=== PATIENT | male | born 1960 | race Caucasian/White ===

== ENCOUNTER 2018-08-21 07:11 | Day surgery (SDC) | payer OTHER ==
[~2018-08-21 07:11] MED LIST: CEFAZOLIN 2 GM/D5W RTU 2 GM/50 ML RTUPB IV PRN
[2018-08-21] MEDS ORDERED: MIDAZOLAM 2 MG/2 ML INJ ONE (07:33)
[2018-08-21] MEDS ORDERED: ONDANSETRON HCL INJ/PF 4 MG/2 ML SDV ONE (07:33)
[2018-08-21] MEDS ORDERED: FENTANYL CITRATE INJ/PF 100 MCG/2 ML AMPUL ONE (07:33)
[2018-08-21] MEDS ORDERED: LIDOCAINE 2% INJ-PF (20 MG/ML) 10 ML AMPUL ONE (07:33)
[2018-08-21] MEDS ORDERED: DEXAMETHASONE SOD PHOSPHATE INJ 4 MG/1 ML VIAL ONE (07:33)
[2018-08-21] MEDS ORDERED: ACETAMINOPHEN 1,000 MG/100 ML RTUPB IV ONE (07:34)
[2018-08-21] MEDS ORDERED: PROPOFOL INJ 200 MG/20 ML VIAL IV ONE (07:34)
[2018-08-21] MEDS ORDERED: CEFAZOLIN 2 GM/D5W RTU 2 GM/50 ML RTUPB IV ONE (07:35)
[2018-08-21] MEDS ORDERED: BUPIVACAINE HCL 0.5 % INJ/PF 30 ML SDV ONE (08:01)
[2018-08-21 08:27] LABS: ANION GAP 9 (5-19); BLOOD UREA NITROGEN 18 mg/dL (7-20); CALCIUM 9.1 mg/dL (8.4-10.2); CARBON DIOXIDE 24 mmol/L (22-30); CHLORIDE 109 mmol/L (98-107); GLUCOSE 103 mg/dL (75-110); POTASSIUM 4.5 mmol/L (3.6-5.0); SODIUM 141.8 mmol/L (137-145)
[2018-08-21] MEDS ORDERED: ONDANSETRON HCL INJ/PF 4 MG/2 ML SDV IV PRN ×2 (11:04→13:11)
[2018-08-21] MEDS ORDERED: MORPHINE SULFATE 10 MG/ML INJ IV PRN (11:04)
[2018-08-21] MEDS ORDERED: FENTANYL CITRATE INJ/PF 100 MCG/2 ML AMPUL IV PRN ×3 (11:04)
[2018-08-21] MEDS ORDERED: PROMETHAZINE HCL INJ 25 MG/1 ML VIAL IV PRN ×2 (11:04)
[2018-08-21] MEDS ORDERED: MEPERIDINE HCL/PF INJ 25 MG/1 ML DISP.SYRIN IV PRN (11:04)
[2018-08-21] MEDS ORDERED: DIPHENHYDRAMINE HCL 50 MG/ML VIAL IV PRN (11:04)
--- NOTE | 2018-08-21 12:26 | RADIOLOGY REPORT (SQ) ---
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 FLUOROSCOPY TIME: 52 seconds 3 images saved to PACS. TECHNIQUE: Intra-operative images acquired during surgical procedure to evaluate progress. NUMBER OF IMAGES: 3 LIMITATIONS: None. FINDINGS: 3 images of the wrist and hand. Patient undergoing carpal resection along the radial aspe ct of the wrist. Resected trapezium. Partially resected trapezoid. Please correlate with operative note. IMPRESSION: IMAGE(S) OBTAINED DURING PROCEDURE. COMMENT: Quality ID [id number]: Final reports for procedures using fluoroscopy that document radiation exp osure indices, or exposure time and number of fluorographic images (if radiation exposure indices are not available) Please consult full operative report of the attending physician for description of the procedure. TECHNICAL DOCUMENTATION: JOB ID: [id number] [employer]- All Rights Reserved Reading location - IP/workstation name: [email or web address]
--- NOTE | 2018-08-21 12:26 | RADIOLOGY REPORT (SQ) ---
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 FLUOROSCOPY TIME: 52 seconds 3 images saved to PACS. TECHNIQUE: Intra-operative images acquired during surgical procedure to evaluate progress. NUMBER OF IMAGES: 3 LIMITATIONS: None. FINDINGS: 3 images of the wrist and hand. Patient undergoing carpal resection along the radial aspe ct of the wrist. Resected trapezium. Partially resected trapezoid. Please correlate with operative note. IMPRESSION: IMAGE(S) OBTAINED DURING PROCEDURE. COMMENT: Quality ID [id number]: Final reports for procedures using fluoroscopy that document radiation exp osure indices, or exposure time and number of fluorographic images (if radiation exposure indices are not available) Please consult full operative report of the attending physician for description of the procedure. TECHNICAL DOCUMENTATION: JOB ID: [id number] [employer]- All Rights Reserved Reading location - IP/workstation name: [email or web address]
[2018-08-21] MEDS ORDERED: OXYCODONE-ACETAMINOPHEN 5-325 MG TABLET PO PRN ×2 (12:36→13:11)
--- NOTE | 2018-08-21 12:37 | Discharge Summary ---
Discharge Summary (SDC) - Discharge Final Diagnosis: Right thumb STT/CMC arthritis Date of Surgery: 08/21/18 Discharge Date: 08/21/18 Condition: Good Treatment or Instructions: Schedule Follow Up w/ Dr. Erwin Cantu @ [facility] for Surgery to be seen in 10-14 days or as scheduled [place]: [place]: [place]: Ice and elevate Keep splint clean/dry/intact. If your fingers become numb please unwrap the [place] wrap but leave the splint in place, if the sensation does not return within 30 minutes please return to the emergency department. May begin finger range of motion attempting to make full fist. Please use ibuprofen (Motrin or Advil) 600-800 mg every 8 hours as needed for pain or fever DO NOT TAKE w/ TORADOL may use once TORADOL complete. You may also use acetaminophen (Tylenol) 1000 mg every 4-6 hours as needed for pain or fever. Please be aware that many medications contain acetaminophen, do not exceed a total of 1000 mg of acetaminophen every 6 hours. If ibuprofen and acetaminophen are not sufficient for your pain you may take the Percocet/[place]. Please be aware that the Percocet/[place]low does contain Tylenol. Stool softener of choice when on pain medication. Prescriptions: Ketorolac Tromethamine [Toradol 10 mg Tablet] 10 mg PO Q8HP PRN #12 tablet PRN Reason: Oxycodone HCl/Acetaminophen [Percocet 5-325 mg Tablet] 1 tab PO Q6 PRN #25 tab PRN Reason: Referrals: ANITRA RODRIGUEZ PA [Primary Care Provider] - Discharge Diet: As Tolerated Respiratory Treatments at Home: Deep Breathing/Coughing Discharge Activity: No Lifting Over 10 Pounds, No Lifting/Push/Pulling Report the Following to Your Physician Immediately: Fever over 101 Degrees, Unusual Bleeding, Redness, Swelling, Warmth, Increased Soreness
[2018-08-21] MEDS: FENTANYL CITRATE INJ/PF 100 MCG/2 ML AMPUL ONE ×2 (12:40→12:45)
[2018-08-21] MEDS ORDERED: KETOROLAC TROMETHAMINE INJ/PF 30 MG/1 ML SDV ONE (12:40)
--- NOTE | 2018-08-21 12:41 | Operative Report ---
Operative Report DATE OF SURGERY: 08/21/18 PREOPERATIVE DIAGNOSIS: Right Thumb CMC/STT Arthritis POSTOPERATIVE DIAGNOSIS: Same OPERATION: Right Thumb CMC Arthroplasty w/ Trapezial Excision, Ligament Reconstruction Utilizing APL, Tendon Interposition SURGEON: QUINCY BOYKIN ANESTHESIA: GA COMPLICATIONS: None ESTIMATED BLOOD LOSS: Minimal PROCEDURE: Indication for above procedure: 58-year-old male with history of right thumb pain. Patient was diagnosed with CMC/STT arthritis. Attempted conservative measures including anti- inflammatories, bracing and injections without resolution of the symptom. After discussing risks and benefits and given the fact patient failed conservative management joint decision was made to proceed with operative treatment. Procedure In Detail: Patient was seen and evaluated in the preoperative holding area. The RIGHT upper extremity was initialized and marked. Patient received 2g of Ancef IV for bacterial prophylaxis. Patient was taken back to the operative room where transferred to the operative table and placed under general anesthesia. Once they were adequately anesthetized and a nonsterile tourniquet was placed on the upper extremity. A surgical team debriefing was performed ensuring all instrumentation was available, the surgical procedure was discussed with possible concerns reviewed. The upper extremity was prepped with chlorhexidine and alcohol and draped in a sterile fashion. A timeout was done identifying correct patient, procedure and extremity everyone in attendance agree with this and verbalized no concerns. The extremity was exsanguinated the tourniquet was inflated to 200 mmHg. A longitudinal skin incision was made in line with the first dorsal compartment. I then meticulously dissected down to the interval of the APL and EPB identifying the superficial radial nerve branches which were retracted. I then identified the radial artery which was protected throughout the entirety of the case with a [place] elevator. A T-shaped capsulotomy was made at the CMC joint of the thumb. A freer elevator was used to josie out the CMC joint, fluoroscopy confirmed the thumb cmc joint placement. The capsule was released off of the trapezium circumferentially. The FCR insertion volarly was protected. Using a rongeur the trapezium was excised as one unit. I then removed any residual loose bodies and bone fragments. I then inspected the STT joint. There was advanced degenerative changes of the STT joint thus the proximal half of the trapezoid was excised. 3 slips of the APL were identified and tracked proximally. A second longitudinal skin incision was made over the first dorsal compartment. Branch of the superficial radial nerve were identified and retracted in the middle slip of the APL was excised at the musculotendinous junction and tunneled through the incision at the CMC joint. The APL was then brought around the FCR tendon and secured to itself while my podiatrist assistant held traction of the CMC joint. This was secured with a 3-0 Ethibond suture. Additional 3-0 Ethibond suture was then placed and the remaining APL was interposed between the trapezoid and scaphoid. Given patient's history of heavy labor decision was made to proceed with placement of a CMC tight rope. The guidepin for the CMC tight rope was placed from the base of the thumb metacarpal into the second metacarpal just proximal to the metaphyseal flare. Bicortical fixation was obtained in both the thumb metacarpal and index metacarpal. A skin incision was made overlying the guidepin blunt dissection performed to the dorsal interossei preserving the fascial for later closure. The suture was then shuttled through the thumb and index metacarpal and a button placed at the thumb metacarpal and index metacarpal. With a bump between the index and middle finger maintaining palmar abduction mild radial abduction and extension of the CMC joint 2 suture knots were placed over the button. C-arm fluoroscopy was obtained confirming adequate traction there is no evidence of subsidence with stress. Thus I completed fixation with 4 additional knots. The wound was then irrigated with normal saline. The FiberWire was buried below the fascia of the dorsal fascia which was secured with interrupted 3-0 Vicryl suture. Skin was closed with running 3-0 nylon suture. Tourniquet was then deflated. A peripheral bleeding was controlled with bipolar cautery until the wound was dry. Capsule of the CMC joint was closed with interrupted 3-0 Ethibond suture. Subcutaneous tissues closed with interrupted 4-0 Monocryl suture. Skin was closed with horizontal mattress 4-0 nylon. 30 cc of 0.5% Marcaine without epinephrine was injected for postoperative pain control. Patient was placed in a thumb spica splint. Sponge counts, instrument counts, needle counts counts were correct. Patient was then awoken from anesthesia. Transferred from the operating room table to the operating room stretcher. There was no intraoperative complications patient tolerated procedure well stable to PACU. Patient was extubated and transferred to the operative stretcher. There was no intraoperative complications patient tolerated procedure well with stable to PACU. Postoperative plan: Patient will continue the splint for 2 weeks. Patient will then be transitioned to a cast for an additional 2 weeks. They will then begin occupational therapy at 4 weeks and will be fitted for a thermoplastic splint at that time.
[2018-08-21] MEDS: HYDROMORPHONE HCL INJ/PF 2 MG/ML AMPULE ONE ×2 (13:00→13:10)
[2018-08-21] MEDS ORDERED: HYDROMORPHONE HCL INJ/PF 2 MG/ML AMPULE IV PRN (13:11)
[2018-08-21] MEDS ORDERED: PHENYLEPHRINE HCL INJ/PF 10 MG/1 ML SDV ONE (13:30)
[2018-08-21] MEDS ORDERED: OXYCODONE-ACETAMINOPHEN 5-325 MG TABLET ONE (13:50)
--- NOTE | 2018-08-21 15:46 | EKG REPORT ---
SEVERITY:- NORMAL ECG - SINUS RHYTHM : Confirmed by: Sienna Joseph MD 21-Aug-2018 15:45:53
[2018-08-21 18:39] VITALS: BP 123/72
== END 2018-08-21 14:45 | disposition home or self-care (01) ==
LOC: OROUT 07:11
PROVIDERS: ATTEND Orthopaedic Surgery
DX: M18.11 Unilateral primary osteoarthritis of first carpometacarpal joint, right hand (principal); M25.531 Pain in right wrist; Z79.899 Other long term (current) drug therapy
CPT/HCPCS: 36415; 80048; 73140; 93005; 93010; 25447; 29848; 26480; J2250; J3490 ×2; J1100; J3010; J1885; J1170; J2370; J2405; J2704; J0690; J0131; 01830

== ENCOUNTER 2019-04-29 07:30 | Day surgery (SDC) | payer OTHER ==
[~2019-04-29 07:30] MED LIST changes: -CEFAZOLIN 2 GM/D5W RTU 2 GM/50 ML RTUPB IV PRN; +CEFAZOLIN SODIUM 2 GM in DEXTROSE 5%-WATER 100 ML IV PRN; +DEXAMETHASONE SOD PHOSPHATE INJ 4 MG/1 ML VIAL ONE; +FENTANYL CITRATE INJ/PF 100 MCG/2 ML AMPUL ONE; +MIDAZOLAM 2 MG/2 ML INJ ONE; +ONDANSETRON HCL INJ/PF 4 MG/2 ML SDV ONE; +PROPOFOL INJ 200 MG/20 ML VIAL IV ONE
[2019-04-29] MEDS ORDERED: BUPIVACAINE HCL 0.5 % INJ/PF 30 ML SDV ONE (07:37)
[2019-04-29] MEDS ORDERED: LIDOCAINE 1%/EPINEPHRINE INJ 20 ML VIAL ONE (07:37)
[2019-04-29 08:16] LABS: APPEARANCE,URINE CLEAR; BILIRUBIN,URINE NEGATIVE (NEGATIVE); COLOR,URINE YELLOW; GLUCOSE, URINE NEGATIVE (NEGATIVE); KETONES,URINE NEGATIVE (NEGATIVE); LEUKOCYTE ESTERASE,URINE NEGATIVE (NEGATIVE); NITRITE,URINE NEGATIVE (NEGATIVE); PROTEIN,URINE NEGATIVE (NEGATIVE); URINE SPECIFIC GRAVITY 1.018; UROBILINOGEN,URINE NEGATIVE mg/dL (<2.0)
[2019-04-29 08:22] LABS: MEAN CORPUSCULAR VOLUME 94 fl (80-97)
[2019-04-29 08:42] LABS: ABSOLUTE EOSINOPHILS # (AUTO) 0.1 10^3/uL (0.0-0.6); ABSOLUTE LYMPHOCYTES (AUTO) 1.9 10^3/uL (0.5-4.7); ABSOLUTE MONOCYTES (AUTO) 0.7 10^3/uL (0.1-1.4); ABSOLUTE NEUT (AUTO) 3.6 10^3/uL (1.7-8.2); BASOPHILS % (AUTO) 0.6 % (0-2); EOSINOPHILS % (AUTO) 1.7 % (0-6); HEMATOCRIT 41.2 % (37.9-51.0); HEMOGLOBIN 14.2 g/dL (13.5-17.0); LYMPHOCYTES % (AUTO) 30.1 % (13-45); MEAN CORPUSCULAR HEMOGLOBIN 32.4 pg (27.0-33.4); MEAN CORPUSCULAR HGB CONC 34.5 g/dL (32.0-36.0); MONOCYTES % (AUTO) 10.6 % (3-13); PLATELET COUNT 236 10^3/uL (150-450); RED BLOOD COUNT 4.38 10^6/uL (4.35-5.55); TOTAL CELLS COUNTED % (AUTO) 100 %; WHITE BLOOD COUNT 6.3 10^3/uL (4.0-10.5)
[2019-04-29 08:49] LABS: ANION GAP 6 (5-19); BLOOD UREA NITROGEN 17 mg/dL (7-20); CALCIUM 9.1 mg/dL (8.4-10.2); CARBON DIOXIDE 28 mmol/L (22-30); CHLORIDE 106 mmol/L (98-107); GLUCOSE 100 mg/dL (75-110); POTASSIUM 4.2 mmol/L (3.6-5.0)
--- NOTE | 2019-04-29 09:43 | RADIOLOGY REPORT (SQ) ---
EXAM DESCRIPTION: CHEST SINGLE VIEW COMPLETED DATE/TIME: 04/29/2019 8:20 am REASON FOR STUDY: preop COMPARISON: 08/13/2015 EXAM PARAMETERS: NUMBER OF VIEWS: One view. TECHNIQUE: Single frontal radiographic view of the chest acquired. RADIATION DOSE: NA LIMITATIONS: None. FINDINGS: LUNGS AND PLEURA: Linear marking left lower lung zone. Subsegmental atelectasis versus sc arring. Few small scattered granulomata. MEDIASTINUM AND HILAR STRUCTURES: No masses. Contour normal. HEART AND VASCULAR STRUCTURES: Heart normal in size. Normal vasculature. BONES: No acute findings. HARDWARE: None in the chest. OTHER: No other significant finding. IMPRESSION: Minimal subsegmental atelectasis versus scarring left lower lung zone. TECHNICAL DOCUMENTATION: JOB ID: [id number] [employer]- All Rights Reserved Reading location - IP/workstation name: [email or web address]
[2019-04-29] MEDS ORDERED: DIPHENHYDRAMINE HCL 50 MG/ML VIAL IV PRN (10:54)
[2019-04-29] MEDS ORDERED: MORPHINE SULFATE 10 MG/ML INJ IV PRN (10:54)
[2019-04-29] MEDS ORDERED: FENTANYL CITRATE INJ/PF 100 MCG/2 ML AMPUL IV PRN ×3 (10:54)
[2019-04-29] MEDS ORDERED: PROMETHAZINE HCL INJ 25 MG/1 ML VIAL IV PRN ×2 (10:54)
[2019-04-29] MEDS ORDERED: MEPERIDINE HCL/PF INJ 25 MG/1 ML DISP.SYRIN IV PRN (10:54)
[2019-04-29] MEDS ORDERED: ONDANSETRON HCL INJ/PF 4 MG/2 ML SDV IV PRN (10:54)
--- NOTE | 2019-04-29 11:14 | Operative Report ---
Operative Report DATE OF SURGERY: 04/29/19 PREOPERATIVE DIAGNOSIS: Loose body left knee POSTOPERATIVE DIAGNOSIS: Loose body left knee. Grade 3 chondral lesion medial femoral condyle. Medial meniscal tear. Intact ACL. Lateral meniscal tear. Grade 2 chondral malacia lateral compartment. Grade 2 chondral malacia the patellofemoral compartment OPERATION: Left arthroscopic partial medial lateral meniscectomy, abrasion chondroplasty of the medial femoral condyle, extensive synovectomy, resection of loose body SURGEON: MENG MELCHOR ANESTHESIA: LMAC ESTIMATED BLOOD LOSS: Minimal PROCEDURE: The patient supine on the operative table the left lower extremities prepped and draped in sterile fashion. The limb is insufflated with combination of Marcaine, Xylocaine, and epinephrine. Subsequent medial lateral patella portals are created for the introduction of arthroscope and debridements mentation. The joint is examined in systematic fashion findings as above. Using a basket rondure, mechanical shaver and ultimately electro frequency ablation probe a partial lateral meniscectomy was performed from approximately 1:00 to 5:00 on the face of the dial. The joint is then examined in systematic fashion. Because of a hypertrophic synovitis throughout the medial gutter, supracondylar pouch, lateral gutter a partial synovectomy was performed with the idea being that a possible loose body identified on MRI scan could be enveloped in the hypertrophic synovium. The medial lateral gutters were again examined in systematic fashion with potentially some loose bodies in the lateral gutter which were removed using mechanical shaver. Attempt is made to get into the posterior compartment of the knee but this is unsuccessful. Next a partial medial meniscectomy was performed from approximately 8:00 to 12:00 on the face is now using Morris mechanical shaver, electric frequency ablation probe. An abrasion chondroplasty medial femoral condyle was performed. The joint is again examined in systematic fashion with no new findings. Graft instrumentation was removed. Portals reapproximated interrupted nylon. A sterile compressive dressing is applied and the patient's return to the PACU in satisfactory condition.
--- NOTE | 2019-04-29 11:17 | Discharge Summary ---
Discharge Summary (SDC) - Discharge Final Diagnosis: Loose body left knee Date of Surgery: 04/29/19 Discharge Date: 04/29/19 Condition: Good Treatment or Instructions: Weightbearing as tolerated ambulation. Remove compressive wrap on Monday. Underlying OpSite dressing can remain in place until you return to the office. You can shower once the compressive wrap is removed. Prescriptions: Oxycodone HCl/Acetaminophen [Percocet 5-325 mg Tablet] 1 tab PO Q6 PRN 40 Days #25 tab PRN Reason: Pain Scale Per Md Referrals: SILVIO MCGREGOR DO [Primary Care Provider] - Discharge Diet: As Tolerated, Regular Respiratory Treatments at Home: Deep Breathing/Coughing Discharge Activity: Balance Activity w/Rest, No tub bath Home Care Assistance: None Needed Report the Following to Your Physician Immediately: Shortness of Breath, Fever over 101 Degrees, Drainage-Foul Smelling
[2019-04-29] MEDS: FENTANYL CITRATE INJ/PF 100 MCG/2 ML AMPUL ONE ×2 (11:30→11:35)
[2019-04-29] MEDS ORDERED: OXYCODONE-ACETAMINOPHEN 5-325 MG TABLET PO PRN ×2 (11:46→11:47)
[2019-04-29] MEDS ORDERED: OXYCODONE-ACETAMINOPHEN 5-325 MG TABLET ONE (12:09)
[2019-04-29 13:34] VITALS: BP 146/90
--- NOTE | 2019-04-29 14:47 | EKG REPORT ---
SEVERITY:- OTHERWISE NORMAL ECG - SINUS BRADYCARDIA : Confirmed by: Sienna Joseph MD 29-Apr-2019 14:46:44
== END 2019-04-29 13:06 | disposition home or self-care (01) ==
LOC: OROUT 07:30
PROVIDERS: ATTEND Orthopaedic Surgery
DX: M23.42 Loose body in knee, left knee (principal); M25.562 Pain in left knee; S83.282A Other tear of lateral meniscus, current injury, left knee, initial encounter; S83.242A Other tear of medial meniscus, current injury, left knee, initial encounter; X58.XXXA Exposure to other specified factors, initial encounter; M22.42 Chondromalacia patellae, left knee; M65.862 Other synovitis and tenosynovitis, left lower leg; Z79.899 Other long term (current) drug therapy
CPT/HCPCS: 36415; 85025; 80048; 81001; 71045; 93005; 93010; 29876; 29880; J2250; J3490 ×2; J0690; J1100; J3010; J2405; J7060; J2704; 1400